=== PATIENT | female | born 1985 | race Caucasian/White ===

== ENCOUNTER 2020-07-19 13:38 | Emergency (ER) | payer SELFPAY ==
[2020-07-19] VITALS (13 sets, daily range): BP systolic 94–108; BP diastolic 51–69; PULSE 93–114; RESP 16–24; TEMP 36.5–38.1; O2SAT 98–100
--- NOTE | 2020-07-19 13:57 | US_ITS ---
WS: [id number] EARLY OBSTETRICAL ULTRASOUND (<14 WEEKS). HISTORY: vaginal bleeding, miscarriage COMPARISON: None available. Transabdominal and transvaginal imaging is submitted. Uterus is slightly enlarged. No intrauterine ge stational sac is identified. Mildly thickened hypervascular endometrium. No pole or cardiac act ivity. RIGHT ovary measures 3.1 x 1.5 x 3.4 cm. LEFT ovary measures 3.1 x 1.6 x 2.7 cm. Normal vascularity. No free fluid. US/US OB <= 14 weeks fetus [id number] IMPRESSION: 1. No intrauterine gestation identified. Without visualizing an intrauterine g estation cannot exclude ectopic. Findings may be secondary to near complete spo ntaneous . 2. No free fluid.
[2020-07-19 14:18] LABS: Basophils # 0.1 10^3/uL (0.0-0.1); Basophils % 0.4 %; Eosinophils # 0.1 10^3/uL (0.0-0.8); Eosinophils % 0.5 %; Hemoglobin 6.7 g/dL (11.5-15.3); Lymphocytes # 2.9 10^3/uL (0.8-4.8); Lymphocytes % 12.1 %; Mean Corpuscular HGB Conc 33.7 g/dL (30.0-36.0); Mean Corpuscular Hemoglobin 31.3 pg (28.0-34.0); Monocytes # 1.4 10^3/uL (0.2-0.9); Neutrophils # 18.88 10^3/uL (1.8-7.7); Neutrophils % 79.7 %; Nucleated Red Blood Cells % 0.2 %; Platelet Count 283 10^3/cmm (130-400); Red Blood Count 2.14 10^6/uL (4.1-5.3); Red Cell Distribution Width 13.9 % (12.1-15.1); White Blood Count 23.7 10^3/uL (4.0-10.0)
[2020-07-19 14:28] LABS: Hematocrit 19.9 % (37.0-47.0)
--- NOTE | 2020-07-19 14:34 | ED_ITS ---
HPI - General Adult General: Chief complaint: General Medical Stated complaint: loss of blood from miscarriage Time Seen by Provider: 07/19/20 13:46 Source: patient and family () Mode of arrival: ambulatory Limitations: no limitations History of Present Illness: HPI narrative: Patient is a 35-year-old female G7 who said she was about 3 months when she started bleeding vaginally about 4 days ago. She had heavy bleeding on that day with passage of clots but the bleeding only lasted about an hour. Since then she has had only little bleeding. However today, she developed heavy vaginal bleeding with passage of clots. She has also had a few syncopal episodes. She feels lightheaded and dizzy. She denies any abdominal pain or fever. No nausea. Her states she appears very pale. Associated symptoms: Reports syncope; Deny dyspnea, headache(s), nausea, rash, palpitations or vomiting Review of Systems General: Reports: 10 or more systems reviewed and unremarkable except in HPI and below Const: Denies: fever(s), chills or body aches Eyes: Denies: change in vision or blurry vision ENMT: Denies: throat pain, enlarged tonsils, odynophagia, hoarseness, mouth pain or swelling of lips/tongue Card: Reports: syncope; Denies: palpitations, irregular heart rhythm, edema or swelling of feet/ankles Resp: Denies: dyspnea, productive cough or non-productive cough GI: Denies: abdominal pain, nausea or vomiting : Reports: vaginal bleeding; Denies: flank pain, difficulty voiding, dysuria, urinary frequency, urinary urgency or urinary hesitancy Musc: Denies: neck pain, back pain or extremity swelling Skin/Breast: Denies: rash, pruritus or erythema Neuro: Reports: dizziness; Denies: headache(s), numbness in extremities or weakness in extremities Endo: Denies: polyuria, polydipsia or tired all the time Physical Exam Const: COMMON NORMALS: average body habitus, patient oriented x3, no limitations, healthy appearing, alert and well nourished GENERAL APPEARANCE: in distress ORIENTATION/CONSCIOUSNESS: Yes awake, Yes oriented to person, Yes oriented to place and Yes oriented to time HENMT: COMMON NORMALS: normocephalic, atraumatic and moist oral mucous membranes HEAD & SCALP: normocephalic and atraumatic Eye: COMMON NORMALS: Equal, round and reactive pupils present, EOMs intact bilaterally and no scleral icterus CONJUNCTIVA: Yes conjunctival abnormal positive bilateral pallor PUPIL: Yes Equal, round and reactive pupils present Neck/C-Spine: COMMON NORMALS: no meningeal signs and no JVD Resp: COMMON NORMALS: normal respiratory effort, No retractions, No use of accessory muscles, clear to auscultation bilaterally and percussion normal AUSCULTATION: clear to auscultation bilaterally PERCUSSION: percussion normal Cardio: COMMON NORMALS: no JVD, regular rate, regular rhythm, S1 normal heart sound present, S2 normal heart sound present, No gallops present (Cardio), No clicks present (Cardio), No murmurs present (Cardio), No rub (Cardio) and Periph eral pulses 2+ throughout RATE: regular rate RHYTHM: regular rhythm HEART SOUNDS: S1 normal heart sound present and S2 normal heart sound present PERIPHERAL PULSES: Peripheral pulses 2+ throughout GI: COMMON NORMALS: Normal to inspection, nondistended, normoactive bowel sounds present, Soft to palpation, non-tender, No hepatosplenomegaly present, no masses and no bruits PALPATION: Yes Soft to palpation and Yes No hepatosplenomegaly present : SPECULUM EXAM - CERVIX: Yes Cervical os open, Yes Patulous cervix present, Yes Tissue present in the cervical os, Yes Cervical bleeding (with blood pooling in the vagina) and Yes Cervical lesion present (what appears to be an abrasion on the anterior part of the cervix) OB/EXTERNAL & SPECULUM: Cervical os open OTHER: passed a large amount of bloody material that appears to be products of conception (fetus). Extremity: COMMON NORMALS: normal to inspection, full ROM, capillary refill normal, no calf tenderness and no pedal edema Neuro: COMMON NORMALS: patient oriented x3 SENSORIUM/ORIENTATION: Yes alert, Yes oriented to person, Yes oriented to place and Yes oriented to time MENINGEAL SIGNS: Yes no meningeal signs Skin: COMMON NORMALS: no rashes or lesions noted, no wounds, turgor normal, no jaundice, no petechiae and no mottling GENERAL SKIN EXAM: no rashes or lesions noted, turgor normal and pallor Course Reevaluation(s): Reevaluation #1: Discussed with the patient and her . Explained her lab and imaging findings with her. Also explained my conversation with the egyptologist with her. She will receive blood transfusion, will replace her potassium intravenously, and the expel productive conception will be evaluated by the pathologist. The pathologist also came down to talk to her about genetic testing of the expelled fetus. Explained that she will have a strict pad count and since she is insistent on being discharged if she does not have any significant bleeding she will be discharged home. Time: 15:20 Reevaluation #2: My conversation with the egyptologist with her. Patient continues to feel better. She would like to follow-up locally with a physician in [place] but I still will give her the information for Dr. Gregory in case she decides to see her. She voiced understanding and is in agreement with the plan Time: 20:06 Consultations: Consultation #1: Discussed the patient with Dr. Gregory, egyptologist. She looked at the ultrasound and does not identify any productive conception. Advised to give rectal Cytotec 800 mcg x 1 and to do a strict pad count while she is getting the blood transfusion. She will be reviewed after the transfusion and if she is having a lot of bleeding will be reviewed before then. Time: 15:10 Consultation #2: Discussed the patient with Dr. Gregory again. Blood transfusion done. She has only used 1 pad since the Cytotec and has not required any change of pad. No active bleeding. The patient feels better. The patient would like to be discharged home. The egyptologist is okay with discharging the patient and will require a 3 to 4-week follow-up. Time: 20:00 Vital Signs: Vital signs: Vital Signs Temperature 99.7 F H 07/19/20 17:47 Pulse Rate 96 07/19/20 21:06 Respiratory Rate 21 H 07/19/20 21:06 Blood Pressure 94/51 07/19/20 21:06 Pulse Oximetry 99 07/19/20 21:06 MDM - General Adult MDM Narrative: Medical decision making narrative: 35-year-old female patient with anemia secondary to blood loss from a spontaneous . Hemoglobin was 6.7 and she required 2 units of packed red blood cells. Beta hCG quantitative measurement was low at 372. Examination was otherwise unremarkable with no signs of sepsis or infection on exam. She was also given RhoGam as she is rhesus negative. She remained stable throughout emergency department stay and is discharged home with a prescription for oral potassium and iron tablets. The patient is advised to avoid any strenuous activities for at least a week and to gradually resume her prior levels of activity. Leukocytosis is likely a stress reaction. Medical Records: Attestation: I reviewed the patient's medical records. Lab Data: Attestation: I reviewed the patient's lab results. Labs: Lab Results 07/19/20 07/19/20 07/19/20 Range/Units 13:45 13:45 13:45 WBC 23.7 H (4.0-10.0) 10^3/ uL RBC 2.14 L (4.1-5.3) 10^6/u L Hgb 6.7 L (11.5-15.3) g/dL Hct 19.9 L* (37.0-47.0) % MCV 93.0 (81-99) fL MCH 31.3 (28.0-34.0) pg MCHC 33.7 (30.0-36.0) g/dL RDW 13.9 (12.1-15.1) % Plt Count 283 (130-400) 10^3/c mm MPV 11.0 H (7.4-10.4) fL Neut % (Auto) 79.7 % Lymph % (Auto) 12.1 % Ford % (Auto) 6.0 % Eos % (Auto) 0.5 % Baso % (Auto) 0.4 % Neut # (Auto) 18.88 H (1.8-7.7) 10^3/u L Lymph # (Auto) 2.9 (0.8-4.8) 10^3/u L Ford # (Auto) 1.4 H (0.2-0.9) 10^3/u L Eos # (Auto) 0.1 (0.0-0.8) 10^3/u L Baso # (Auto) 0.1 (0.0-0.1) 10^3/u L Nucleated RBC % (a uto) 0.2 % Nucleated RBCs # 0.0 /100WBC Sodium 133 L (136-145) mmol/L Potassium 2.5 L* (3.5-5.1) mmol/L Chloride 97 L (98-107) mmol/L Carbon Dioxide 23 (22-29) mmol/L Anion Gap 15.5 (5-19) BUN 10 (6-20) mg/dL Creatinine 0.4 L (0.5-0.9) mg/dL GFR Calculation 179.6 H (90-130) mL/min Glucose 221 H (65-115) mg/dL Calculated Osmolal ity 282 L (285-295) mOsm/k g Lactate 2.8 H (0.5-2.2) mmol/L Calcium 8.0 L (8.5-10.5) mg/dL Total Bilirubin 0.2 (0.15-1.2) mg/dL AST 14 (0-32) U/L ALT 6 (0-33) U/L Alkaline Phosphata se 39 (35-105) IU/L Total Protein 5.4 L (6.6-8.7) g/dL Albumin 3.2 L (3.5-5.2) g/dL Globulin 2.2 (1.3-4.6) g/dL Ser , Jamie i-Qnt 372.70 mIU/mL Blood Type Rho(D) Type Antibody Screen Crossmatch 07/19/20 Range/Units 13:45 WBC (4.0-10.0) 10^3/ uL RBC (4.1-5.3) 10^6/u L Hgb (11.5-15.3) g/dL Hct (37.0-47.0) % MCV (81-99) fL MCH (28.0-34.0) pg MCHC (30.0-36.0) g/dL RDW (12.1-15.1) % Plt Count (130-400) 10^3/c mm MPV (7.4-10.4) fL Neut % (Auto) % Lymph % (Auto) % Ford % (Auto) % Eos % (Auto) % Baso % (Auto) % Neut # (Auto) (1.8-7.7) 10^3/u L Lymph # (Auto) (0.8-4.8) 10^3/u L Ford # (Auto) (0.2-0.9) 10^3/u L Eos # (Auto) (0.0-0.8) 10^3/u L Baso # (Auto) (0.0-0.1) 10^3/u L Nucleated RBC % (a uto) % Nucleated RBCs # /100WBC Sodium (136-145) mmol/L Potassium (3.5-5.1) mmol/L Chloride (98-107) mmol/L Carbon Dioxide (22-29) mmol/L Anion Gap (5-19) BUN (6-20) mg/dL Creatinine (0.5-0.9) mg/dL GFR Calculation (90-130) mL/min Glucose (65-115) mg/dL Calculated Osmolal ity (285-295) mOsm/k g Lactate (0.5-2.2) mmol/L Calcium (8.5-10.5) mg/dL Total Bilirubin (0.15-1.2) mg/dL AST (0-32) U/L ALT (0-33) U/L Alkaline Phosphata se (35-105) IU/L Total Protein (6.6-8.7) g/dL Albumin (3.5-5.2) g/dL Globulin (1.3-4.6) g/dL Ser , Jamie i-Qnt mIU/mL Blood Type A Negative Rho(D) Type Negative Antibody Screen Negative Crossmatch See Detail Imaging Data^: US OB: Radiologist's impression: [address] [address] Ultrasound Report Signed Patient: Chitra Silver #: [id number] : 1985Acct#:[id number] Age/Sex: 35 / FADM Date: 07/19/20 Loc: ERRoom/Bed: Attending Dr: Ordering Provider/Ordering MD: Diann Del Cid [place] [facility] [place] Service: 07/19/20 Procedure(s): US OB <= 14 weeks fetus [id number] Accession Number(s): [id number] Report Number: [id number] WS: [id number] EARLY OBSTETRICAL ULTRASOUND (<14 WEEKS). HISTORY: vaginal bleeding, miscarriage COMPARISON: None available. Transabdominal and transvaginal imaging is submitted. Uterus is slightly enlarged. No intrauterine gestational sac is identified. Mildly thickened hypervascular endometrium. No pole or cardiac activity. RIGHT ovary measures 3.1 x 1.5 x 3.4 cm. LEFT ovary measures 3.1 x 1.6 x 2.7 cm. Normal vascularity. No free fluid. US/US OB <= 14 weeks fetus 05001 IMPRESSION: 1. No intrauterine gestation identified. Without visualizing an intrauterine gestation cannot exclude ectopic. Findings may be secondary to near complete spontaneous . 2. No free fluid. Dictated By:Prema Ramírez DO Signed By:Prema Ramírez DOSigned Date/Time:07/19/201554 DD/ 52 Critical Care Time Critical Care Time: Critical Care Time: Yes Total Critical Care Time: 90 Attestation: This case had a high probability of a clinically significant, sudden, or life threatening deterioration of this patient's condition which required my full and direct attention, intervention and personal management. Discharge Plan Discharge Patient Disposition: Home Clinical Impression: Spontaneous complicated by delayed or excessive hemorrhage, Acute blood loss anemia, Hypokalemia Condition: Stable Prescriptions: New ferrous sulfate 325 mg (65 mg iron) tablet 325 mg PO DAILY Qty: 30 RF: 0 potassium chloride 20 mEq tablet extended release 20 meq PO BID Qty: 10 RF: 0 Continued [place] Pills See Rx Instructions .ROUTE .COMPLEX RF: 0 Tea With Vitamin A See Rx Instructions .ROUTE .COMPLEX RF: 0 Motherwort Extraxt See Rx Instructions .ROUTE .COMPLEX RF: 0 Discharge Orders: Discharge ED (Routine); Ordered 07/19/20 Ordered By: Diann Del Cid Referrals: Filipe Amador MD [Physician] - 3 weeks Discharge Diet: Usual diet Discharge Activity: Limit activity as instructed Patient Instructions: Spontaneous Miscarriage (ED), Hypokalemia (ED), Anemia (ED) Activity Restrictions/Additional Instructions: Return for any new or worsening symptoms. Follow-up with the egyptologist within 3 weeks. You can call the number given to you tomorrow to schedule an appointment or as she had mentioned before you can make an appointment with a doctor there is local to you. You need to rest with no strenuous activities for at least 1 week and then gradually resume to eventually get to your prior levels of activities. Take the potassium replacement as prescribed and the iron pills to improve your blood levels. Coding Level of Care Code ED [employer] for [employer] Fwd Exam Comprehensive
[2020-07-19 14:40] LABS: Alanine Aminotransferase 6 U/L (0-33); Albumin Level 3.2 g/dL (3.5-5.2); Alkaline Phosphatase 39 IU/L (35-105); Anion Gap 15.5 (5-19); Aspartate Amino Transferase 14 U/L (0-32); Blood Urea Nitrogen 10 mg/dL (6-20); Carbon Dioxide 23 mmol/L (22-29); Chloride 97 mmol/L (98-107); Globulin 2.2 g/dL (1.3-4.6); Glomerular Filtration Rate 179.6 mL/min (90-130); Glucose 221 mg/dL (65-115); Osmolality Calculated 282 mOsm/kg (285-295); Sodium 133 mmol/L (136-145); Total Bilirubin 0.2 mg/dL (0.15-1.2); Total Protein 5.4 g/dL (6.6-8.7)
[2020-07-19 14:42] LABS: Lactate (Lactic Acid level) 2.8 mmol/L (0.5-2.2)
[2020-07-19 14:46] LABS: Potassium 2.5 mmol/L (3.5-5.1)
[2020-07-19] MEDS: miSOPROStol 200 mcg Tablet 800 MCG PR (15:37)
[2020-07-19] MEDS: potassium chloride premix 100 ML 25 MEQ IV (15:57)
== END 2020-07-19 21:09 | disposition home or self-care (01) ==
PROVIDERS: Emergency Provider Family Medicine
DX: O03.6 Delayed or excessive hemorrhage following complete or unspecified spontaneous abortion (principal); O99.011 Anemia complicating pregnancy, first trimester; Z3A.00 Weeks of gestation of pregnancy not specified; O26.891 Other specified pregnancy related conditions, first trimester; E87.6 Hypokalemia
CPT/HCPCS: 12345; 36430; 76801; 80053; 83605; 84702; 85025; 86850; 86900; 86920; 88305; 90384; 96365; 96366; 99283; 99284; J3480; P9016